=== PATIENT | female | born 1985 | race Caucasian/White ===

== ENCOUNTER 2017-11-08 09:49 | Inpatient (IN) | payer BC, OTHER ==
[~2017-11-08] VITALS: Ht 154.9 cm; Wt 68.6 kg
[~2017-11-08 09:49] MED LIST: PRENTAB26 PO
[2017-11-08 11:43] LABS: HEMATOCRIT 35.1 % (37-47); HEMOGLOBIN 12.2 g/dL (12.0-16.0); MEAN CELL VOLUME 88.4 fL (80-100); MEAN CORPUSCULAR HEMOGLOBIN 30.7 pg (25-34); MEAN CORPUSCULAR HGB CONC 34.8 g/dl (32-36); MEAN PLATELET VOLUME 10.9 fL (7.4-10.4); PLATELET COUNT 207 K/uL (130-400); RED CELL DISTRIBUTION WIDTH CV 14.2 % (11.5-14.5); RED CELL DISTRIBUTION WIDTH SD 45.7 fL (36.4-46.3); WHITE BLOOD COUNT 9.51 K/uL (4.8-10.8)
[2017-11-08 13:23] VITALS: Ht 154.9 cm; Wt 68.6 kg
[2017-11-08] MEDS ORDERED: FERR1TAB23 (13:26)
[2017-11-08] MEDS ORDERED: PRENTAB26 PO (13:26)
[2017-11-08] MEDS ORDERED: FRRS300 PO (13:26)
[2017-11-08] MEDS ORDERED: CHOL1CAP12 PO (13:26)
[2017-11-08] MEDS: MISOPROSTOLTAB 50 MCG TAB PO SCH ×2 (16:25→20:00)
--- NOTE | 2017-11-08 16:51 | HISTORY & PHYSICAL EXAMINATION ---
DATE OF ADMISSION: 11/08/2017 HISTORY OF PRESENT ILLNESS: The patient is a 32-year-old G2, P0-0-1-0, EDC 11/16/2017 making it 38 weeks and 6 days, presented to labor and delivery with spontaneous rupture of membranes at 0700 hour this morning. Fluid was clear. On arrival at labor and delivery, this was confirmed with AmniSure. Decision was therefore made to admit patient and anticipate vaginal delivery. COURSE: Has been unremarkable. PAST MEDICAL HISTORY: History of psoriasis of scalp. PAST SURGICAL HISTORY: None. SOCIAL HISTORY: The patient denies tobacco, drug or alcohol use. FAMILY HISTORY: Noncontributory. ALLERGIES: No known drug allergies. PHYSICAL EXAMINATION: GENERAL: Well-developed, well-nourished white female in no acute distress. HEART: S1, S2, regular rhythm and rate. LUNGS: Clear to auscultation bilaterally. ABDOMEN: Gravid. heart rate is category 1. Bedside ultrasound shows cephalic presentation. PELVIS: Fingertip, 50% and minus 3 station. EXTREMITIES: No cyanosis, clubbing or edema. ASSESSMENT AND PLAN: A 32-year-old G2, P0 at 38 and 6 weeks, term premature rupture of membranes, brought to labor and delivery, patient was about 4 hours ruptured and was having minimal contractions. We discussed the use of Pitocin for augmentation. The patient declined any augmentation. She wants to do an unmedicated delivery and has a ____ plan. Plan therefore is to admit patient and anticipate spontaneous progression of labor at this point.
[2017-11-08] MEDS ORDERED: LACTATED RINGER'S 1000ML 500 ML IV PRN (20:44)
[2017-11-08] MEDS ORDERED: OXYTOCIN 30 UNITS/500ML NSS IV PRN (20:45)
[2017-11-08] MEDS: LACTATED RINGER'S 1000ML 1,000 ML IV SCH (20:48)
[2017-11-09] MEDS ORDERED: FENTANYL 2MCG/ML ROPIV 1.25MG/ML 100ML BAG EPI ONE (01:11)
[2017-11-09] MEDS ORDERED: BUPIVACAINE 0.25% 30 ML VIAL ONE (01:11)
[2017-11-09] MEDS ORDERED: EpHEDrine SULFATE INJ 50 MG/ML AMP ONE (01:11)
[2017-11-09] MEDS ORDERED: FENTANYL CITRATE INJ 50 MCG/1 ML 2 ML VIAL ONE (01:12)
[2017-11-09] MEDS ORDERED: LACTATED RINGER'S 1000ML 500 ML IV PRN (02:02)
[2017-11-09] MEDS ORDERED: NALOXONE HCL INJ 1 MG in SODIUM CHLORIDE 0.9% 1000ML 1,000 ML IV PRN ×4 (02:02)
[2017-11-09] MEDS: LACTATED RINGER'S 1000ML 1,000 ML IV SCH ×2 (02:03→05:53)
[2017-11-09] MEDS ORDERED: EpHEDrine SULFATE INJ 50 MG/ML AMP IV PRN (02:15)
[2017-11-09] MEDS ORDERED: NALOXONE HCL INJ 0.4 MG/1 ML VIAL/CARP IV PRN (02:15)
[2017-11-09] MEDS ORDERED: FENTANYL 2MCG/ML ROPIV 1.25MG/ML 100ML BAG EPI PRN (02:15)
[2017-11-09] MEDS ORDERED: ONDANSETRON INJ 2 MG/ML 2 ML VIAL IV PRN (02:15)
[2017-11-09] MEDS ORDERED: DiphenhydrAMINE HCL 50 MG/ML VIAL IV PRN (02:15)
[2017-11-09] MEDS ORDERED: NALBUPHINE HCL INJ 10 MG/ML AMP IV PRN (02:15)
[2017-11-09] MEDS ORDERED: PROMETHAZINE HCL INJ 25 MG in SODIUM CHLORIDE 0.9% 50ML 50 ML IV PRN (02:15)
[2017-11-09] MEDS ORDERED: METOCLOPRAMIDE HCL INJ 20 MG in SODIUM CHLORIDE 0.9% 50ML 50 ML IV PRN (02:15)
[2017-11-09] MEDS: MISOPROSTOLTAB 50 MCG TAB PO SCH ×2 (04:00)
[2017-11-09] MEDS ORDERED: NURSING VERBAL MED ORDER ONE ×2 (06:15→10:00)
[2017-11-09] MEDS ORDERED: CEFAZOLIN IV 2,000 MG in SYRINGE 0 ML IV ONE (10:15)
[2017-11-09] MEDS ORDERED: LACTATED RINGER'S 1000ML 1,000 ML IV SCH (10:28)
[2017-11-09] MEDS ORDERED: BENZOCAINE 20% AER SPR 82.5 GM CAN EXT PRN (10:30)
[2017-11-09] MEDS ORDERED: DIPHTHERIA/TETANUS/PERTUSSIS 0.5 ML SYR/VIAL IM. ONE (10:30)
[2017-11-09] MEDS ORDERED: SUPERCREAM 0.870 % 15GM JAR EXT PRN (10:30)
[2017-11-09] MEDS ORDERED: LANOLIN OINT EXT PRN (10:30)
[2017-11-09] MEDS ORDERED: MEASLES, MUMPS & RUBELLA VIRUS VIAL SQ. ONE (10:30)
[2017-11-09] MEDS ORDERED: HYDROCORTISONE ACETATE 25 MG SUPP PR PRN (10:30)
[2017-11-09] MEDS ORDERED: ACETAMINOPHEN 325 MG TAB PO PRN (10:30)
[2017-11-09] MEDS ORDERED: OXYTOCIN 30 UNITS/500ML NSS IV PRN (10:30)
--- NOTE | 2017-11-09 11:14 | DELIVERY SUMMARY ---
DATE OF OPERATION: 11/09/2017 DELIVERY NOTE DETAILS OF DELIVERY: The patient was found to be fully dilated and desired to push. She pushed effectively for about an hour and 10 minutes and the baby' s head was over small introitus. Perineal muscles and hymenal ring was found to be tight holding the baby's head. The mother was exhausted. After verbal consent was obtained right medial lateral episiotomy was opened and then the baby's head was delivered without difficulty. Shoulders were difficulty right after the head without any traction and the whole baby was delivered without difficulty and handed off to the mother. Mouth and nose were suctioned. Cord was clamped x2 at 1 minute and cut and it was 3-vessel cord. Cord blood was obtained. Then vagina and perineum were checked for lacerations. The medial lateral episiotomy was found to be extended into partial 3rd degree laceration. It was confirmed with rectal exam. Gloves were changed and external fibers of anal sphincter were held with Allis clamps, brought to the midline and [id number] stitches were placed x3 and sphincter was repaired with end to end fashion. Rectal exam was repeated. Excellent sphincter tone was noted and no sutures were felt in the rectal mucosa. The Gloves were changed again. The rest of the episiotomy was repaired starting from the vaginal mucosa bringing the bulbocavernosus muscles, perineal body muscles together. The skin was repaired with 3-0 Vicryl in subcuticular fashion. There was a first degree left labial minora laceration which was repaired with 3-0 Vicryl on SH needle, with figure of 8 stitches x2. Excellent hemostasis was achieved. The rest of the vagina and cervix found to be intact and placenta was found to be in the vagina delivered spontaneously and intact and complete. Uterus was explored and found to be empty. Lower segment was cleared of all clots and debris. Estimated blood loss 300. Mom and baby tolerated the procedure well. Sponge, lap, needle and instrument counts was correct x2. The baby was a viable female infant, Apgars 8/9, weight 2700 gr. No complications happened and I was present during the whole procedure. During the repair the patient was given 2 grams of IV cefazolin. I attest to the content of the Intraoperative Record and any orders documented therein. Any exceptions are noted below. MTDD
--- NOTE | 2017-11-09 14:27 | Anesthesia Procedure Note ---
Anesthesia Epidural Removal Nt Date & Time Nov 09, 2017 at 14:27 Vital Signs Pain Intensity: 0.0 Notes Mental Status: alert / awake / arousable, participated in evaluation Nausea / Vomiting: adequately controlled Pain: adequately controlled Airway Patency, RR, SpO2: stable & adequate BP & HR: stable & adequate Hydration State: stable & adequate Neuraxial Anesthesia: was administered Anesthetic Complications: no major complications apparent, pt satisfied with anesthetic care Epidural: removed without complications, with tip intact
[2017-11-09 14:43] VITALS: BP 110/60; PULSE 86; TEMP 37.8
[2017-11-09] MEDS: IBUPROFEN 600 MG TAB PO PRN ×2 (15:42→21:53)
[2017-11-09 16:00] VITALS: BP 116/73; PULSE 87; TEMP 36.9
[2017-11-09] MEDS: OXYCODONE/ACETAMINOPHEN 5-325 TAB PO PRN ×2 (16:21→21:53)
[2017-11-09 20:00] VITALS: BP 94/55; PULSE 80; TEMP 36.5
[2017-11-09] MEDS: BISACODYL 5 MG TABEC PO SCH (20:14)
[2017-11-09] MEDS: DOCUSATE SODIUM 100 MG CAP PO SCH (20:14)
[2017-11-10 00:56] VITALS: BP 109/70; PULSE 69; TEMP 36.7
[2017-11-10 04:20] VITALS: BP 114/78; PULSE 63; TEMP 36.5
[2017-11-10] MEDS: IBUPROFEN 600 MG TAB PO PRN ×3 (04:42→14:23)
[2017-11-10] MEDS: OXYCODONE/ACETAMINOPHEN 5-325 TAB PO PRN (04:42)
[2017-11-10 06:23] LABS: HEMATOCRIT 26.5 % (37-47); HEMOGLOBIN 9.2 g/dL (12.0-16.0)
[2017-11-10 08:00] VITALS: BP 102/63; PULSE 74; TEMP 36.9; O2SAT 100
[2017-11-10] MEDS: BISACODYL 5 MG TABEC PO SCH (08:00)
[2017-11-10] MEDS: DOCUSATE SODIUM 100 MG CAP PO SCH ×2 (08:13→20:11)
[2017-11-10] MEDS: PRENATAL VITAMIN TAB PO SCH (08:13)
[2017-11-10] MEDS: FERROUS SULFATE 325 MG TAB PO SCH (08:13)
--- NOTE | 2017-11-10 10:06 | OB/GYN Progress Note ---
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 Subjective conversation w/ patient, physical exam Ambulation: ambulating normally Voiding: no voiding problems Passing Gas: Yes Diet Tolerance: Regular Diet Lochia: Moderate Feeding Type: Breast Feeding Pain: 3-4/10 Notes: Doing well. Pain well controlled. Tolerating regular diet. Ambulating without difficulty. Lochia moderate. Objective Vital Signs Date Time Temp Pulse Resp B/P (MAP) Pulse Ox O2 Delivery O2 Flow Rate FiO2 11/10/17 08:00 100 Room Air 11/10/17 08:00 36.9 74 18 102/63 (76) 100 11/10/17 04:20 36.5 63 18 114/78 (90) 11/10/17 00:56 36.7 69 18 109/70 (83) 11/09/17 20:00 36.5 80 20 94/55 (68) 11/09/17 16:00 36.9 87 20 116/73 (87) 11/09/17 14:43 37.8 86 22 110/60 Physical Exam General Appearance: WELL-APPEARING Respiratory/Chest: chest non-tender, lungs clear Cardiovascular: regular rate, rhythm Abdomen: normal bowel sounds, soft Fundus: Firm Extremities: normal range of motion, non-tender, no calf tenderness Laboratory Results Last 24 Hours Test 11/10/17 05:58 Hemoglobin 9.2 g/dL Hematocrit 26.5 % Assessment and Plan Post- Day Number: 1 Continue Routine Care: -Advance diet and activity as tolerated. -Continue routine care -Anticipate D/C home in AM
[2017-11-10] MEDS ORDERED: MTR600X PO (10:07)
--- NOTE | 2017-11-10 10:08 | Discharge Instructions ---
Discharge Instructions Date of Service Nov 10, 2017. Admission Reason for Admission: R/O Rupture Of Membranes Discharge Discharge Diagnosis / Problem: Vaginal Delivery Discharge Goals Goal(s): Routine recovery after delivery Medications Continue Dispensed Medications: supercream, tucks, lansinoh Activity Recommendations Activity Limitations: per Instructions/Follow-up section . Instructions / Follow-Up Instructions / Follow-Up ACTIVITY RECOMMENDATIONS: * Gradual return to full activity over the next 2-3 weeks. * No lifting - nothing heavier than baby over the next 2-3 weeks. * Do not engage in vigorous exercise, sexual activity or sports until cleared by your physician. * Do not drive or operate any motorized equipment until cleared by your physician. * You may shower/bathe daily. BREAST CARE: If you are not breast feeding: * Wear a supportive bra 24 hours a day for one to two weeks. * Avoid stimulating your breasts and nipples as much as possible during the first few weeks after delivery. * When taking a shower, have the warm water hit your back, not breasts. * When your breasts feel full, apply ice packs. Usually three to four times a day helps ease the discomfort. * Take a mild pain medication (Tylenol/Motrin) when you are uncomfortable. If breast feeding: * Use breast milk to lubricate nipples. Lansinoh cream may be used for sore nipples. You do not need to remove cream prior to breast feeding. If using a different brand of cream, check the label for directions regarding removal of cream prior to nursing. * Wear a supportive bra. * If having problems with breasts or breast feeding, call a search consultant or your health care provider. EPISIOTOMY CARE: After delivery, if you have an episiotomy (stitches), the following steps will ease discomfort and aid healing. * For the first 24 hours after delivery, place ice packs next to your episiotomy to help reduce swelling. * After the first 24 hour-period, sitz baths, either portable or in the tub, are suggested. A shower with a shower arm sprayed over the episiotomy may be comforting. * Alyson care should be done after each voiding and bowel movement. Squirt warm water from a plastic bottle over the perineum (region of the body between the anus and urinary opening) and pat dry. * Use Dermoplast to ease discomfort. Shake container. [place] directly over the episiotomy. * Place a Tucks on a clean sanitary pad next to your episiotomy. OVER THE COUNTER MEDICATION: * For discomfort or pain, you may use Acetaminophen (Tylenol), Ibuprofen (Advil ), or Naproxen (Aleve) following the package directions. * For constipation you may use Colace following the package directions. SPECIAL CARE INSTRUCTIONS: When you are discharged from the hospital, it is important for you to follow the instructions listed below: * During the first week at home, you should be able to care for yourself and your baby. In addition, the usual light household activities are encouraged. * Limit your activities to the way you feel. Do not try to clean the house or move furniture. Be sensible. * If you actively engage in sports and have done so up until the time of your delivery, you may resume these activities as soon as you feel able. This may take up to one month or even longer. Use good judgment. * Continue to take your vitamins for at least six weeks after the of your baby. * Your diet need not be limited unless you were on a special diet before your delivery. Breast-feeding mothers need around 2500 calories per day and at least 64-80 ounces of fluid per day (8 to 10 glasses). * You should eat foods from the four major food groups. Crash diets or fad diets are to be avoided. Eating lean meats, fresh fruits and vegetables, low-fat dairy products, high fiber foods and a regular exercise program, will help you get back to your pre- weight without putting your health at risk. * Constipation is sometimes a problem after delivery. Take a mild laxative as needed. If breast feeding, Milk of Magnesia is acceptable to use. You may use a suppository or Fleets enema if no episiotomy. * A daily shower or tub bath is suggested. Be sure to thoroughly and gently dry the perineum. * A bloody vaginal discharge will usually continue until around four weeks post . A small amount of bleeding may continue for as long as six weeks. Vaginal discharge changes from the bright red bleeding after delivery to pink then brownish and finally yellowish-pink before becoming white and disappearing. * Bleeding may increase with activity. Your first period may come in 4-8 weeks. If you are breast feeding, your period may be delayed even longer. * Pena (sex) can begin whenever both you and your partner feel comfortable and do not have any form of genital infection. It is recommended that you wait until after your return appointment and discuss with your physician. If you have questions, please talk to your health care practitioner. A condom should be used to prevent infection and . * Foreplay, gentle intercourse and lubrication is very important the first several times to prevent pain. A water-based lubricant such as K-Y jelly or Astroglide may be used. * Tampons may be used six weeks after delivery. * Douching should be avoided for 6 weeks after delivery. * If you have RH negative blood and your baby is RH positive, you will receive RHOGAM by injection prior to discharge. The nurse will give you a card to keep with you that has the date and place that you received RHOGAM after delivery. * During your care, you had a Rubella screen done to check for the presence of rubella antibodies in your blood. If your test was negative, you will receive a Rubella vaccine prior to discharge. This vaccine may cause a fever, soreness at the injection site and flu-like symptoms. If these symptoms persist, notify your health care practitioner. is not advised for three months after a Rubella vaccine. There is a higher chance of having a baby with defects if conceived within three months of getting the vaccine. * If you were discharged 24 hours from delivery or before 48 hours: Visiting nurses will come to your home 48 hours after discharge to assess you and your baby. The visiting nurse will meet with you while you are in the hospital to arrange a time and get directions to your home. * Verbalizes understanding of car seat law as reviewed with patient nursing. * Car Seat hand-out given and reviewed with patient by nursing. * Shaken baby information reviewed with patient by nursing. Call you doctor if: * Heavy bleeding (saturating several pads an hour) or passing clots the size of your fist. * A fever >101 degrees F (38.3 degrees C) on two occasions four hours apart and/or chills. * Unusual pain in the pelvic or vaginal areas. * "Baby Blues" lasting longer than two weeks. If you have any questions or concerns, call your health care practitioner at . FOLLOW-UP VISIT: * Please call the office at to schedule a 6 week examination. It is important you keep this appointment. * It is important for you to make arrangements for either yearly or twice yearly check-ups thereafter. Current Hospital Diet Patient's current hospital diet: Vegetarian Diet Discharge Diet Recommended Diet: Vegetarian Diet Pending Studies Studies pending at discharge: no Medical Emergencies . Who to Call and When: Medical Emergencies: If at any time you feel your situation is an emergency, please call 911 immediately. . Non-Emergent Contact Non-Emergency issues call your: Primary Care Provider, Spud Driller . . "Provider Documentation" section prepared by Nicko Steele. . VTE Core Measure Inpt VTE Proph given/why not?: Treatment not indicated
[2017-11-10 11:30] VITALS: BP 97/54; PULSE 70; TEMP 36.8; O2SAT 100
[2017-11-10 14:45] VITALS: BP 103/64; PULSE 76; TEMP 36.4; O2SAT 100
[2017-11-11] VITALS: BP 90/53; PULSE 67; TEMP 36.8
[2017-11-11] MEDS: IBUPROFEN 600 MG TAB PO PRN (01:33)
[2017-11-11 07:14] VITALS: BP 109/70; PULSE 69; TEMP 36.6
[2017-11-11 07:59] LABS: HEMATOCRIT 27.2 % (37-47); HEMOGLOBIN 9.3 g/dL (12.0-16.0); MEAN CELL VOLUME 88.3 fL (80-100); MEAN CORPUSCULAR HEMOGLOBIN 30.2 pg (25-34); MEAN CORPUSCULAR HGB CONC 34.2 g/dl (32-36); MEAN PLATELET VOLUME 10.7 fL (7.4-10.4); PLATELET COUNT 184 K/uL (130-400); RED CELL DISTRIBUTION WIDTH CV 14.2 % (11.5-14.5); RED CELL DISTRIBUTION WIDTH SD 45.7 fL (36.4-46.3)
[2017-11-11] MEDS: BISACODYL 5 MG TABEC PO SCH (08:07)
[2017-11-11] MEDS: PRENATAL VITAMIN TAB PO SCH (08:07)
[2017-11-11] MEDS: DOCUSATE SODIUM 100 MG CAP PO SCH (08:07)
[2017-11-11] MEDS: FERROUS SULFATE 325 MG TAB PO SCH (08:07)
--- NOTE | 2017-11-11 10:18 | OB/GYN Progress Note ---
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 Subjective conversation w/ patient Ambulation: ambulating normally Voiding: no voiding problems Diet Tolerance: Regular Diet Lochia: Moderate Feeding Type: Breast Feeding Notes: Doing well, no concerns. Pain well controlled. Would like to go home today. Review of Systems Constitutional: No fever, No chills, No sweats, No weight loss, No weakness, No fatigue, No problem reported Respiratory: No cough, No sputum, No wheezing, No shortness of breath, No dyspnea on exertion, No dyspnea at rest, No hemoptysis, No problem reported Cardiac: No chest pain, No orthopnea, No PND, No edema, No claudication, No palpitations, No problem reported Abdomen: No pain, No nausea, No vomiting, No diarrhea, No constipation, No GI bleeding, No problem reported Female : No see HPI, No dysuria, No urinary frequency, No hematuria, No incontinence, No abnormal vaginal bleeding, No vaginal discharge, No problem reported Objective Vital Signs Date Time Temp Pulse Resp B/P (MAP) Pulse Ox O2 Delivery O2 Flow Rate FiO2 11/11/17 07:14 36.6 69 20 109/70 (83) 11/11/17 00:00 36.8 67 18 90/53 (65) Room Air 11/11/17 00:00 Room Air 11/10/17 14:45 36.4 76 18 103/64 (77) 100 11/10/17 14:45 100 Room Air 11/10/17 11:30 36.8 70 16 97/54 (68) 100 Laboratory Results Last 24 Hours Test 11/11/17 07:48 White Blood Count 11.90 K/uL Red Blood Count 3.08 M/uL Hemoglobin 9.3 g/dL Hematocrit 27.2 % Mean Corpuscular Volume 88.3 fL Mean Corpuscular Hemoglobin 30.2 pg Mean Corpuscular Hemoglobin Concent 34.2 g/dl RDW Standard Deviation 45.7 fL RDW Coefficient of Variation 14.2 % Platelet Count 184 K/uL Mean Platelet Volume 10.7 fL Assessment and Plan Post- Day Number: 2 Continue Routine Care: -D/C home today -F/U in 6 weeks.
[2017-11-11 12:45] VITALS: BP_DIAS 70; PULSE 69; TEMP 36.6
== END 2017-11-11 13:55 | disposition home or self-care (01) | DRG 775 ==
LOC: C.LD 09:49 → C.OPB 09:49 → UNDOADMIN 11:02 → C.LD 11:02 → C.OBG 11-09 15:09 → EDSTATUS 11-19 09:54
PROVIDERS: ADMIT Obstetrics & Gynecology; ATTEND Obstetrics & Gynecology
PROC: 0W8NXZZ Division of Female Perineum, External Approach (ICD-10-PCS; principal; 2017-11-09)
PROC: 10E0XZZ Delivery of Products of Conception, External Approach (ICD-10-PCS; principal; 2017-11-09)
PROC: 0DQR0ZZ Repair Anal Sphincter, Open Approach (ICD-10-PCS; principal; 2017-11-09)
DX: O42.02 Full-term premature rupture of membranes, onset of labor within 24 hours of rupture (principal); O70.20 Third degree perineal laceration during delivery, unspecified; Z3A.38 38 weeks gestation of pregnancy; Z37.0 Single live birth

== ENCOUNTER 2021-12-13 03:03 | Inpatient (IN) ==
[2021-12-13] MEDS ORDERED: OXYTOCIN 30 UNITS/500 ML BAG IV PRN ×3 (04:15→20:49)
[2021-12-13 05:29] LABS: Hematocrit (blood only) 36.9 % (37-47); Hemoglobin 12.6 g/dL (12.0-16.0); Mean Corpuscular Hemoglobin 30.7 pg (25-34); Mean Corpuscular Hgb Conc 34.1 g/dL (32-36); Mean Corpuscular Volume 89.8 fL (80-100); Mean Platelet Volume 10.5 fL (7.4-10.4); Platelet Count 205 K/uL (130-400); RDW Coefficient of Variation 14.2 % (11.5-14.5); RDW Standard Deviation 46.8 fL (36.4-46.3); Red Blood Count 4.11 M/uL (4.2-5.4)
--- NOTE | 2021-12-13 07:20 | Obstetrical Progress Note ---
Date of Service December 13, 2021 Assessment & Plan (1) PROM (premature rupture of membranes): Plan: PROM at 01;00 AM Pt doing well NST; CAT1 Ctx; Q 20 mins Discussed Pitocin augmentation with pt Pt has declined Pitocin augmentation since arrival Pt is made aware of risk of infection, CP etc following prolonged rapture Pt and spouse are not ready yet to consider Pitocin augmentation Admission and Anticipated Discharge Date Admission Date: December 13, 2021 Results & Data ([facility]) Vital Signs (Past 12 Hours) Vital Signs Temp Resp 12/13/21 03:10 36.6 C 18
--- NOTE | 2021-12-13 10:17 | Labor Progress Brief Note ---
Date of Service December 13, 2021 Subjective Reason For Note: Routine Evaluation Assessment & Plan Admission and Anticipated Discharge Date Admission Date: December 13, 2021 Physical Exam Genitourinary: Manual OB Exam: + cervical dilation 1 cm and 2 cm, + cervical effacement 50% and + station high cervix posterior and very firm will give Cytotec to try and ripen cervix since patient attempting to do unmedicated delivery Results & Data ([facility]) Vital Signs (Past 12 Hours) Vital Signs Temp Resp 12/13/21 03:10 36.6 C 18
[2021-12-13] MEDS ORDERED: miSOPROStoL 50 MCG TAB PO SCH ×2 (11:00→12:00)
--- NOTE | 2021-12-13 15:20 | Labor Progress Brief Note ---
Date of Service December 13, 2021 Assessment & Plan Admission and Anticipated Discharge Date Admission Date: December 13, 2021 Physical Exam Genitourinary: Manual OB Exam: + cervical dilation 4 cm, + cervical effacement 60% and + station -2 cervix anterior will start Oxytocin Results & Data ([facility]) Vital Signs (Past 12 Hours) Vital Signs Temp Pulse Resp BP 12/13/21 13:45 36.7 C 12/13/21 10:46 77 91/59 L 12/13/21 10:45 36.7 C 20 12/13/21 08:45 36.7 C
[2021-12-13] MEDS: LACTATED RINGER'S 1,000 ML IV PRN ×2 (16:13→19:19)
--- NOTE | 2021-12-13 18:57 | Labor Progress Brief Note ---
Date of Service December 13, 2021 Assessment & Plan Admission and Anticipated Discharge Date Admission Date: December 13, 2021 Physical Exam Genitourinary: Manual OB Exam: + cervical dilation 5 cm, + cervical effacement 80% and + station -1 OB Exam Monitor Tracing: + external FHT monitor used, + external uterine monitor used, + category I and + normal FHT variability Results & Data ([facility]) Vital Signs (Past 12 Hours) Vital Signs Temp Pulse Resp BP 12/13/21 18:18 71 110/69 12/13/21 17:24 36.6 C 12/13/21 15:23 77 104/63 12/13/21 15:20 36.6 C 20 12/13/21 13:45 36.7 C 12/13/21 10:46 77 91/59 L 12/13/21 10:45 36.7 C 12/13/21 08:45 36.7 C
[2021-12-13] MEDS ORDERED: ePHEDrine sulfate 50 MG/ML AMP ONE (18:58)
[2021-12-13] MEDS ORDERED: fentaNYL citrate 100 MCG/2 ML VIAL ONE (18:58)
[2021-12-13] MEDS ORDERED: SODIUM CHLORIDE 0.9% INJ 10 ML VIAL ONE (18:58)
[2021-12-13] MEDS ORDERED: BUPIVACAINE 0.25% 30 ML VIAL ONE (18:58)
[2021-12-13] MEDS ORDERED: fentaNYL 2MCG/ML ROPIVACAINE 1.25MG/ML 100 ML BAG EPI ONE (18:59)
[2021-12-13] MEDS ORDERED: diphenhydrAMINE 50 MG/ML VIAL IV PRN (19:06)
[2021-12-13] MEDS ORDERED: fentaNYL 2MCG/ML ROPIVACAINE 1.25MG/ML 100 ML BAG EPI PRN (19:06)
[2021-12-13] MEDS ORDERED: ePHEDrine sulfate 50 MG/ML AMP IV PRN (19:06)
[2021-12-13] MEDS ORDERED: NALOXONE HCL 1 MG in SODIUM CHLORIDE 0.9% 1000ML 1,000 ML IV PRN (19:06)
[2021-12-13] MEDS ORDERED: ONDANSETRON INJ 2 MG/ML 2 ML VIAL IV PRN (19:06)
[2021-12-13] MEDS ORDERED: NALOXONE HCL 0.4 MG/1 ML VIAL/CARP IV PRN (19:06)
[2021-12-13] MEDS ORDERED: NALBUPHINE HCL INJ 10 MG/ML AMP IV PRN (19:06)
--- NOTE | 2021-12-13 19:06 | Anesthesiology Consultation ---
Date of Service December 13, 2021 Assessment & Plan ASA ASA2 Proposed Anesthesia Anesthesia Type: Labor Epidural Risk / Benefits Reviewed With: PT / POA / Parent / Guardian, Accepts Plan and Informed Consent Obtained History Height/Weight Height: 5 ft 0.24 in Weight: 67.585 kg Allergies Allergy/AdvReac Type Severity Reaction Status Date / Time No Known Allergies Allergy Unverified 11/08/17 13:23 Medications Home Medications Medication Instructions Recorded Confirmed Last Taken CHOLECALCIFEROL (D3) 1 cap PO DAILY #0 11/08/17 12/13/21 12/12/21 Ferrous Sulfate 1 tab PO DAILY #0 11/08/17 12/13/21 12/12/21 Multivit/Min/Iron/Fol Ac/Pren 1 tab PO DAILY #0 tab 11/08/17 12/13/21 12/12/21 ( Vitamin) Ibuprofen 600 mg PO Q4H PRN #30 tab 11/10/17 Unknown Active Medications Generic Name Dose Route Start Last Admin Trade Name Freq PRN Reason Stop Dose Admin Lactated Ringer's 1,000 mls @ 125 mls/hr 12/13/21 04:15 12/13/21 19:19 Lr IV 12/15/21 04:14 999 mls/hr .Q8H PRN Administration L&D Protocol Protocol Oxytocin 30 units in 500 mls @ 4 mls/hr 12/13/21 15:20 12/13/21 18:30 Pitocin IV 12/15/21 15:19 0.24 units/hr .Q24H PRN 4 mls/hr Labor Induction/Augmentation Titration Protocol 0.24 UNITS/HR Misoprostol 50 mcg 12/13/21 11:00 12/13/21 10:43 Misoprostol 50 Mcg Tab PO 01/12/22 10:59 50 mcg Q4H GAURAV Administration Past Medical History Medical History (Updated 12/13/21 @ 07:17 by Antwon Mejias MD) Iron deficiency anemia during Exercise / Class Metabolic Activity II 4-5 Yardwork/Stairs/Walk up hill Past Family History Family History (Updated 12/13/21 @ 03:32 by Mary Boone RN) Father Heart disease Past Anesthesia History No Hx of Anesthesia Complications and No Family Hx of Anesthesia Complications History of PONV No Hx of PONV and No Hx of Motion Sickness Social History Smoking Status: Never smoker Hx Alcohol Use: No Hx Substance Use: No Review of Systems denies fever/cough/ colds/ chest pain/ SOB/ CARRI denies CARRI Physical Exam Vital Signs Last Vital Signs Temp 36.6 C 12/13/21 17:24 Pulse 88 12/13/21 19:41 Resp 18 12/13/21 19:03 BP 109/58 L 12/13/21 19:41 Pulse Ox 100 12/13/21 19:39 ENMT Mouth: no TMJ abnormality and no dentition abnormality Thyromental Distance: > or= 3.5 Finger Breadths Mallampati Class: II Neck neck extension not limited Respiratory normal respiratory effort; no respiratory distress Auscultation: lungs clear to auscultation bilaterally Cardiovascular Rate/Rhythm: regular rate and regular rhythm Neurologic moves all extremities Psychiatric Orientation: alert and oriented x 3 Testing Laboratory Results 12/13/21 04:51
--- NOTE | 2021-12-13 20:46 | Delivery Summary ---
Vaginal Delivery Summary Date of Service December 13, 2021 Vaginal Delivery Summary Delivery Note live female MARGY over intact perineum with delayed cord clamping and Apgars 8/9 weight pending. Cord blood obtained followed by spontaneous delivery of intact placenta. Small first degree perineal skin tear not bleeding and not sutured. EBL 100 ml. Final sponge and instrument count are correct. Mom and baby stable.
[2021-12-13] MEDS ORDERED: HYDROCORTISONE ACETATE 25 MG SUPP PR PRN (20:49)
[2021-12-13] MEDS ORDERED: BENZOCAINE 20% AER SPR 82.5 GM CAN EXT PRN (20:49)
[2021-12-13] MEDS ORDERED: bisacodyL 10 MG SUPP PR PRN (20:49)
[2021-12-13] MEDS ORDERED: ACETAMINOPHEN 325 MG TAB PO PRN (20:49)
[2021-12-13] MEDS: DOCUSATE SODIUM 100 MG CAP PO SCH (21:25)
--- NOTE | 2021-12-13 22:05 | Anesthesiology Progress Note ---
Date of Service December 13, 2021 Anesthesia Post Procedure Vital Signs Vital Signs: Temp Pulse Resp BP Pulse Ox 12/13/21 21:32 78 94/51 L 12/13/21 21:30 78 18 94/51 L 12/13/21 21:16 83 85/53 L 12/13/21 21:15 18 85/53 L 12/13/21 21:01 69 87/52 L 12/13/21 21:00 70 18 88/51 L 12/13/21 20:46 70 88/51 L 12/13/21 20:45 70 18 88/51 L 12/13/21 20:30 74 20 95/50 L 12/13/21 20:25 80 92 12/13/21 20:24 80 100 12/13/21 20:19 79 99 12/13/21 20:18 80 92 12/13/21 20:15 76 117/60 12/13/21 20:14 79 100 12/13/21 20:09 90 100 12/13/21 20:04 82 100 12/13/21 20:03 83 110/59 L 12/13/21 19:59 84 18 100 12/13/21 19:57 82 104/58 L 12/13/21 19:55 18 12/13/21 19:54 96 H 100 12/13/21 19:52 90 106/63 12/13/21 19:50 18 12/13/21 19:49 89 100 12/13/21 19:45 88 18 112/66 12/13/21 19:44 86 100 12/13/21 19:43 86 111/58 L 12/13/21 19:41 88 109/58 L 12/13/21 19:40 18 12/13/21 19:39 87 108/58 L 100 12/13/21 19:37 92 H 106/58 L 12/13/21 19:35 93 H 18 119/65 12/13/21 19:34 92 H 100 12/13/21 19:33 81 118/64 12/13/21 19:31 81 117/61 12/13/21 19:30 18 12/13/21 19:29 87 127/70 100 12/13/21 19:27 77 125/58 L 12/13/21 19:24 89 100 12/13/21 19:19 73 100 12/13/21 19:14 74 100 12/13/21 19:13 70 121/77 12/13/21 19:09 80 100 12/13/21 19:05 37.1 C 12/13/21 19:04 77 100 12/13/21 19:03 18 12/13/21 18:18 71 110/69 12/13/21 17:24 36.6 C 12/13/21 15:23 77 104/63 12/13/21 15:20 36.6 C 20 12/13/21 13:45 36.7 C 12/13/21 10:46 77 91/59 L 12/13/21 10:45 36.7 C 20 12/13/21 08:45 36.7 C 12/13/21 03:10 36.6 C 18 Pain Intensity Bilateral Abdomen: Pain Intensity: 0 Transfer of Care Handoff Completed per policy Notes Mental Status: alert / awake / arousable and participated in evaluation Patient Amnestic to Procedure: Yes Nausea / Vomiting: adequately controlled Pain: adequately controlled Airway Patency, RR, SpO2: stable & adequate BP & HR: stable & adequate Hydration State: stable & adequate Anesthetic Complications: no major complications apparent and Pt Satisfied with anesthetic care
[2021-12-14 07:06] LABS: Hemoglobin 11.5 g/dL (12.0-16.0); Mean Corpuscular Hemoglobin 30.4 pg (25-34); Mean Corpuscular Hgb Conc 33.8 g/dL (32-36); Mean Corpuscular Volume 89.9 fL (80-100); Mean Platelet Volume 10.7 fL (7.4-10.4); Platelet Count 190 K/uL (130-400); RDW Standard Deviation 46.3 fL (36.4-46.3); Red Blood Count 3.78 M/uL (4.2-5.4); White Blood Count 12.86 K/uL (4.8-10.8)
[2021-12-14] MEDS ORDERED: FERROUS SULFATE 325 MG TAB PO SCH (08:00)
[2021-12-14] MEDS ORDERED: PRENATAL VITAMIN 1 TAB PO SCH (08:00)
[2021-12-14] MEDS: IBUPROFEN 600 MG TAB PO PRN ×4 (08:11→23:47)
[2021-12-14] MEDS: FERROUS SULFATE 325 MG TAB PO SCH (08:12)
[2021-12-14] MEDS: PRENATAL VITAMIN 1 TAB PO SCH (08:12)
[2021-12-14] MEDS: DOCUSATE SODIUM 100 MG CAP PO SCH ×2 (08:12→19:30)
[2021-12-14] MEDS: CHOLECALCIFEROL 400 UNITS 10 MCG TAB PO SCH (08:12)
--- NOTE | 2021-12-14 08:34 | Obstetrical Progress Note ---
Date of Service December 14, 2021 Assessment & Plan Admission and Anticipated Discharge Date Admission Date: December 13, 2021 Subjective Patient is seen and examined. She feels well, no complaints. Ambulating without dizziness Voiding without difficulty Tolerating regular diet with out N&V Bleeding is minimal No fever/ chills/ CP/ SOB/ N&V/ Leg pain Breast feeding without problems Lab Results 12/13/21 12/13/21 12/14/21 Range/Units 03:27 04:51 06:20 WBC 11.50 H 12.86 H (4.8-10.8) K/uL RBC 4.11 L 3.78 L (4.2-5.4) M/uL Hgb 12.6 11.5 L (12.0-16.0) g/dL Hct 36.9 L 34.0 L (37-47) % MCV 89.8 89.9 (80-100) fL MCH 30.7 30.4 (25-34) pg MCHC 34.1 33.8 (32-36) g/dL RDW Std Deviation 46.8 H 46.3 (36.4-46.3) fL RDW Coeff of Paul 14.2 14.0 (11.5-14.5) % Plt Count 205 190 (130-400) K/uL MPV 10.5 H 10.7 H (7.4-10.4) fL SARS-CoV-2, RNA, NAAT NEGATIVE (NEGATIVE) Vital Signs Temp Pulse Pulse Resp BP BP Pulse Ox 12/14/21 07:30 36.8 C 65 18 102/71 100 12/14/21 04:00 37.0 C 56 L 20 88/56 L 98 12/14/21 01:00 36.6 C 69 20 95/61 L 12/13/21 22:48 72 107/57 L 12/13/21 22:45 72 18 107/57 L 12/13/21 22:31 83 98/54 L 12/13/21 22:30 83 18 98/54 L 12/13/21 22:16 84 90/57 L 12/13/21 22:03 79 95/51 L 12/13/21 22:00 79 18 95/51 L 12/13/21 21:32 78 94/51 L 12/13/21 21:30 78 18 94/51 L 12/13/21 21:16 83 85/53 L 12/13/21 21:15 18 85/53 L 12/13/21 21:01 69 87/52 L 12/13/21 21:00 70 18 88/51 L 12/13/21 20:46 70 88/51 L 12/13/21 20:45 70 18 88/51 L PE: General: Alert, orientedx3, NAD Abd: soft, NT, fundus firm, below Umbilicus Perineum intact, Lochia rubra minimal Ext; NT, no edema AP: 36 yo s/p , ppd# 1 VSS Afebrile doing well Continue routine care All questions were answered D/C home tomorrow Results & Data ([facility]) Vital Signs (Past 12 Hours) Vital Signs Temp Pulse Pulse Resp BP BP Pulse Ox 12/14/21 07:30 36.8 C 65 18 102/71 100 12/14/21 04:00 37.0 C 56 L 20 88/56 L 98 12/14/21 01:00 36.6 C 69 20 95/61 L 12/13/21 22:48 72 107/57 L 12/13/21 22:45 72 18 107/57 L 12/13/21 22:31 83 98/54 L 12/13/21 22:30 83 18 98/54 L 12/13/21 22:16 84 90/57 L 12/13/21 22:03 79 95/51 L 12/13/21 22:00 79 18 95/51 L 12/13/21 21:32 78 94/51 L 12/13/21 21:30 78 18 94/51 L 12/13/21 21:16 83 85/53 L 12/13/21 21:15 18 85/53 L 12/13/21 21:01 69 87/52 L 12/13/21 21:00 70 18 88/51 L 12/13/21 20:46 70 88/51 L 12/13/21 20:45 70 18 88/51 L
[2021-12-14] MEDS ORDERED: DIPHTHERIA/TETANUS/PERTUSSIS 0.5 ML SYR/VIAL IM ONE (09:00)
[2021-12-14] MEDS ORDERED: bisacodyL 5 MG TABEC PO SCH (20:00)
[2021-12-15 06:20] LABS: Hematocrit (blood only) 33.1 % (37-47)
[2021-12-15] MEDS: PRENATAL VITAMIN 1 TAB PO SCH (09:02)
[2021-12-15] MEDS: FERROUS SULFATE 325 MG TAB PO SCH (09:02)
[2021-12-15] MEDS: IBUPROFEN 600 MG TAB PO PRN (09:02)
[2021-12-15] MEDS: CHOLECALCIFEROL 400 UNITS 10 MCG TAB PO SCH (09:03)
[2021-12-15] MEDS: DOCUSATE SODIUM 100 MG CAP PO SCH (09:03)
--- NOTE | 2021-12-15 10:22 | Obstetrical Progress Note ---
Date of Service December 15, 2021 Subjective Ambulation: ambulating normally Voiding: no voiding problems Passing Gas:: Yes Diet Tolerance:: regular diet Lochia:: Small Feeding Type:: breast feeding Current Pain Level(1-10): 0 doing well plans for d/c Physical Exam Constitutional WD/WN, vitals as above comfortable abdomen soft and non-tender neg Stephan's for d/c Results & Data ([facility]) Vital Signs (Past 12 Hours) Vital Signs Temp Pulse Resp BP Pulse Ox 12/15/21 09:00 36.7 C 70 18 109/69 100 12/14/21 23:35 36.9 C 74 16 98/62 L 99 Laboratory Results 12/13/21 12/13/21 12/14/21 03:27 04:51 06:20 WBC 11.50 H 12.86 H RBC 4.11 L 3.78 L Hgb 12.6 11.5 L Hct 36.9 L 34.0 L MCV 89.8 89.9 MCH 30.7 30.4 MCHC 34.1 33.8 RDW Std Deviation 46.8 H 46.3 RDW Coeff of Paul 14.2 14.0 Plt Count 205 190 MPV 10.5 H 10.7 H SARS-CoV-2, RNA, NAAT NEGATIVE 12/15/21 05:47 WBC RBC Hgb 11.0 L Hct 33.1 L MCV MCH MCHC RDW Std Deviation RDW Coeff of Paul Plt Count MPV SARS-CoV-2, RNA, NAAT
== END 2021-12-15 14:05 | disposition home or self-care (01) | DRG 807 ==
LOC: OPB 03:03 → 4S2 03:07 → 4S1 04:23 → 4S2 04:26 → 4S1 05:01 → 4S2 23:29